=== PATIENT | female | born 1970 | race Caucasian/White ===

== ENCOUNTER 2016-11-18 15:12 | Emergency (ER) | payer MEDICAID, OTHER ==
[~2016-11-18] VITALS: Ht 167.6 cm; Wt 79.5 kg
[2016-11-18 15:14] VITALS: BP 116/62; PULSE 112; RESP 16; TEMP 97.8; O2SAT 93
--- NOTE | 2016-11-18 15:41 | PD ---
HPI Chief Complaint: Back/ Neck Pain or Injury Time Seen by Provider: 15:41 Travel History International Travel<30 days: No Contact w/Intl Traveler<30days: No Traveled to known affect area: No History of Present Illness HPI 46-year-old female presents to the emergency Department with complaint of left- sided lower back pain that radiates down the back of her leg with worsening over the past few days. She has chronic low back pain and sciatica and has been doing too much physical activity in the last 2-1/2 weeks helping her sister with her nephew that was involved in a motorcycle crash. 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 Denies encopresis, incontinence, saddle anesthesias. Denies paresthesias, loss of sensation, decreased range of motion, decreased strength to bilateral lower extremities. Denies fever, chills, nausea, vomiting. Has used Biofreeze with good relief. Has tried taking Tylenol and ibuprofen with minimal relief. Has not tried any other treatments to alleviate symptoms. Pain is aggravated with certain movements. Pain is decreased while at rest and with standing up. Denies urinary symptoms. Denies IV drug use. Denies cancer. History of diabetes and blood clots. Denies anticoagulants. Allergic to morphine and penicillin. No other modifying factors or associated signs and symptoms. PFSH Past Medical History ?: Not Social History Tobacco Use: No Allergies-Medications (Allergen,Severity, Reaction): Coded Allergies: Morphine (Verified Allergy, Severe, Rash, 11/18/16) Penicillin (Verified Allergy, Severe, Anaphylaxis, 11/18/16) Reported Meds & Prescriptions Reported Meds & Active Scripts Active Robaxin (Methocarbamol) 500 Mg Tab 500 Mg PO QID PRN Ibuprofen 800 Mg Tab 800 Mg PO Q6HR PRN Pyridium (Phenazopyridine HCl) 100 Mg Tab 100 Mg PO Q8H PRN Bactrim DS (Sulfamethoxazole-Trimethoprim) 800-160 Mg Tab 1 Tab PO BID 7 Days Review of Systems Except as stated in HPI: all other systems reviewed are Neg Physical Exam Narrative GENERAL: Well-nourished, well-developed female patient, in no acute distress; appears intoxicated SKIN: Warm and dry. HEAD: Atraumatic. Normocephalic. EYES: Pupils equal and round. No scleral icterus. No injection or drainage. ENT: Mucosa pink and moist. Airway patent. NECK: Trachea midline. CARDIOVASCULAR: Regular rate. RESPIRATORY: No accessory muscle use. GASTROINTESTINAL: Abdomen soft, non-tender, nondistended. Positive bowel sounds. No hepato-splenomegaly, or palpable masses. No guarding. No bladder distention or tenderness on palpation. MUSCULOSKELETAL: Bilateral lower extremities supple and non-tense with 2+ pedal pulses and sensory intact; with full range of motion and 5/5 strength. 2 + DTRs. Active dorsiflexion and extension of bilateral feet. Bilateral straight leg raise is negative for low back pain. Ambulatory with normal gait. Sitting up in bed at 90. No obvious deformities. No clubbing. No cyanosis. No edema. BACK: Sided CVA tenderness. No midline point tenderness on palpation of the lumbar, thoracic spine. Tenderness on palpation of left iliosacral area. No obvious deformities. NEUROLOGICAL: Awake and alert. Oriented 3. No obvious cranial nerve deficits. Motor grossly within normal limits. Normal speech. Moves all extremities. 5/5 strength to all extremities. Sensory intact. PSYCHIATRIC: Appropriate mood and affect; insight and judgment normal. Data Data Last Documented VS Vital Signs Date Time Temp Pulse Resp B/P Pulse Ox O2 Delivery O2 Flow Rate FiO2 11/18/16 16:21 97 11/18/16 15:14 97.8 112 16 116/62 Room Air Orders Ketorolac Inj (Toradol Inj) (11/18/16 15:45) Orphenadrine Inj (Norflex Inj) (11/18/16 15:45) Urinalysis - C+S If Indicated (11/18/16 15:46) Urine Culture (11/18/16 16:00) Labs Laboratory Tests Test 11/18/16 16:00 Urine Color ORANGE Urine Turbidity HAZY Urine pH 5.5 Urine Specific Moro 1.036 Urine Protein 30 mg/dL Urine Glucose (UA) NEG mg/dL Urine Ketones NEG mg/dL Urine Occult Blood NEG Urine Nitrite NEG Urine Bilirubin NEG Urine Urobilinogen 2.0 MG/DL Urine Leukocyte Esterase LARGE Urine RBC 3 /hpf Urine WBC 20 /hpf Urine Squamous Epithelial 3 /hpf Cells Urine Bacteria MANY /hpf Urine Hyaline Casts 3 /lpf Urine Mucus MANY /lpf Microscopic Urinalysis Comment CULTURE INDICATED MDM Medical Decision Making Medical Screen Exam Complete: Yes Emergency Medical Condition: Yes Medical Record Reviewed: Yes Differential Diagnosis Urinary tract infection, pyelonephritis, sciatica Narrative Course 46-year-old female with history of chronic low back pain with acute exacerbation of chronic low back pain and left-sided sciatica. Left CVA tenderness on physical exam. Patient denies urinary symptoms. Urinalysis ordered to rule out UTI. 1701: Urinalysis with signs of infection. Allergic to penicillin. Bactrim, Pyridium, ibuprofen, Robaxin prescribed for home. Patient is medically cleared and stable for discharge. Discussed reasons to return to the emergency department. Instructed patient to follow up with primary care provider. Patient agrees with treatment plan. The patients vital signs are stable and the patient is stable for outpatient follow-up and treatment. Patient discharged home, stable and in no acute distress. Diagnosis Primary Impression: Sciatica of left side Additional Impression: UTI (urinary tract infection) Qualified Code: N39.0 - Urinary tract infection without hematuria, site unspecified Referrals: Primary Care Physician Patient Instructions: General Instructions, Sciatica (ED), Urinary Tract Infection in Women (ED) Departure Forms: Tests/Procedures, Work Release Enter return to work date: Nov 21, 2016 Additional Instructions: Tylenol or ibuprofen as directed and as needed for pain Robaxin as prescribed and as needed for muscle spasms Heating pad and/or ice to affected area to reduce pain Avoid aggravating activities; increase activity as tolerated Follow-up with primary care provider Return to emergency department immediately with worsening of symptoms Take antibiotics as prescribed and complete full course Take Pyridium for bladder spasms: Pyridium will turn your urine bright orange Drink plenty of fluids Maintain good personal hygiene Follow-up with primary care provider Return to the emergency department immediately with worsening of symptoms Med/Other Pt SpecificInfo: Prescription(s) given Scripts Methocarbamol (Robaxin)500 Mg [id number] Mg PO QID PRN (MUSCLE SPASM) #30 TAB Ref 0 Prov:Kenia JaimesP 11/18/16 Ibuprofen 800 Mg [id number] Mg PO Q6HR PRN (PAIN) #30 TAB Ref 0 Prov:Kenia Jaimes INSURANCE AGENCY MANAGER 11/18/16 Phenazopyridine (Pyridium)100 Mg [id number] Mg PO Q8H PRN (DYSURIA) #20 TAB Ref 0 Prov:Kenia Jaimes INSURANCE AGENCY MANAGER 11/18/16 Sulfamethoxazole-Trimethoprim (Bactrim DS)800-160 Mg Tab1 Tab PO BID 7 Days Ref 0 Prov:Kenia Jaimes 11/18/16 Disposition: 01 DISCHARGE HOME Condition: Stable Kenia Jaimes Nov 18, 2016 15:41
[2016-11-18] MEDS ORDERED: KETOROLAC TROMETHAMINE 60 MG/2 ML (IM) VIAL IM ONE (15:45)
[2016-11-18] MEDS ORDERED: ORPHENADRINE INJ 60 MG/2 ML AMP IM ONE (15:45)
[2016-11-18 16:21] VITALS: O2SAT 97
[2016-11-18 16:53] LABS: BACTERIA, URINE MANY /hpf; BLOOD, URINE NEG (NEG); COMMENT (UR) CULTURE INDICATED; CULTURE IF INDICATED CULTURE INDICATED; GLUCOSE,URINE NEG (NEG); HYALINE CAST, URINE 3 /lpf (RARE); KETONE, URINE NEG (NEG); MUCUS URINE MANY /lpf (OCC); NITRITE,URINE NEG (NEG); PH, URINE 5.5 (5.0-8.5); SQUAMOUS EPITHELIAL CELL URINE 3 /hpf (0-5)
[2016-11-18 16:54] LABS: URINE COLOR ORANGE (YELLW/STRAW)
[2016-11-18] MEDS ORDERED: PHEN0.4T PO (17:00)
[2016-11-18] MEDS ORDERED: BACT800T5 PO (17:00)
[2016-11-18] MEDS ORDERED: IBUP800T23 PO (17:03)
[2016-11-18] MEDS ORDERED: ROBA500T PO (17:03)
== END 2016-11-18 17:29 | disposition home or self-care (01) ==
LOC: NEPB 15:12
DX: M54.32 Sciatica, left side (principal); N39.0 Urinary tract infection, site not specified; G89.29 Other chronic pain; Z88.0 Allergy status to penicillin; X50.9XXA Other and unspecified overexertion or strenuous movements or postures, initial encounter; Y93.F9 Activity, other caregiving
CPT/HCPCS: 81001; 87086; 96372; 99283; J1885; J2360